=== PATIENT | female | born 1990 | race Caucasian/White ===

== ENCOUNTER 2017-01-03 07:01 | Emergency (ER) | payer OTHER ==
[2017-01-03 07:07] VITALS: RESP 12
[2017-01-03] MEDS ORDERED: ALBUTEROL NEB SOL 2.5MG/3ML 1 VIAL SOL NEB ONE (07:17)
[2017-01-03] MEDS ORDERED: ALBUTEROL NEB SOL 2.5MG/3ML 1 VIAL SOL ONE (07:24)
[2017-01-03 07:30] LABS: BASOPHILS % (AUTO) 1 % (0-3); EOSINOPHILS % (AUTO) 6 % (0-9); HEMATOCRIT 27 % (35-47); MEAN CORPUSCULAR HGB CONC 32.8 gm/dl (32.0-36.0); MONOCYTES % (AUTO) 9.9 % (0-12); NEUTROPHILS % (AUTO) 44.9 % (37-80)
[2017-01-03 07:35] VITALS: BP 116/70; TEMP 97.2
[2017-01-03 07:36] LABS: MEAN CORPUSCULAR VOLUME 75 fL (81-99)
[2017-01-03 07:39] VITALS: PULSE 88; O2SAT 99
[2017-01-03 07:46] LABS: HYPOCHROMASIA PRESENT
[2017-01-03 07:47] LABS: ANISOCYTOSIS SLIGHT AMT; OVALOCYTES PRESENT
== END 2017-01-03 08:19 | disposition home or self-care (01) ==
LOC: ED 07:01
DX: J20.9 Acute bronchitis, unspecified (principal)
CPT/HCPCS: 36415; 71010; 85025; 87430; 99283; J7603

== ENCOUNTER 2017-10-18 05:42 | Emergency (ER) | payer OTHER ==
[2017-10-18 05:50] VITALS: TEMP 97.1; O2SAT 100
[2017-10-18] MEDS ORDERED: ALBUTEROL/IPRATROPIUM 1 VIAL SOL ONE (05:52)
[2017-10-18] MEDS ORDERED: ALBUTEROL/IPRATROPIUM 1 VIAL SOL INH ONE (05:56)
[2017-10-18] MEDS ORDERED: PREDNISONE 20 MG TAB PO ONE (06:13)
[2017-10-18] MEDS ORDERED: AZITHROMYCIN 250 MG TAB PO ONE (06:14)
[2017-10-18] MEDS ORDERED: PREDNISONE 20 MG TAB ONE (06:21)
[2017-10-18] MEDS ORDERED: AZITHROMYCIN 250 MG TAB ONE (06:22)
[2017-10-18 06:39] VITALS: BP 112/64; PULSE 89; RESP 18
== END 2017-10-18 06:37 | disposition home or self-care (01) ==
LOC: ED 05:42
DX: J40 Bronchitis, not specified as acute or chronic (principal); Z57.31 Occupational exposure to environmental tobacco smoke
CPT/HCPCS: 99282; 99283; A9270-GY

== ENCOUNTER 2018-02-26 02:30 | Emergency (ER) | payer OTHER ==
[2018-02-26 02:52] VITALS: TEMP 97
[2018-02-26] MEDS ORDERED: LIDOCAINE HCL 2% (VISCOUS) 20 ML SOL MT ONE (02:52)
[2018-02-26] MEDS ORDERED: ALUMINUM/MAGNESIUM 30 ML SUS PO ONE (02:52)
[2018-02-26] MEDS ORDERED: ALUMINUM/MAGNESIUM 30 ML SUS ONE (02:54)
[2018-02-26] MEDS ORDERED: LIDOCAINE HCL 2% (VISCOUS) 20 ML SOL ONE (02:55)
[2018-02-26 04:04] LABS: BASOPHILS % (AUTO) 1 % (0-3); EOSINOPHILS % (AUTO) 3 % (0-9); HEMATOCRIT 28 % (35-47); HEMOGLOBIN 8.7 gm/dl (12.0-15.5); MEAN CORPUSCULAR HGB CONC 31.1 gm/dl (32.0-36.0); MONOCYTES % (AUTO) 8.8 % (0-12); NEUTROPHILS % (AUTO) 57.4 % (37-80)
[2018-02-26 04:09] LABS: MEAN CORPUSCULAR VOLUME 80 fL (81-99)
[2018-02-26 04:13] LABS: APPEARANCE,URINE Clear; BILIRUBIN,URINE NEGATIVE (NEGATIVE); COLOR,URINE Yellow; GLUCOSE, URINE (UA) NEGATIVE (NEGATIVE); KETONES,URINE NEGATIVE (NEGATIVE); LEUKOCYTE ESTERASE ,URINE 1+ (NEGATIVE); NITRATE,URINE NEGATIVE (NEGATIVE); OCCULT BLOOD,URINE NEGATIVE (NEG-TRACE); UROBILINOGEN,URINE 0.2 (0.2-1.0 EU)
[2018-02-26 04:18] LABS: ALBUMIN 3.5 gm/dl (3.4-5.0); BILIRUBIN,TOTAL 0.1 mg/dl (0.2-1.0); CALCIUM 8.4 mg/dl (8.5-10.1); CARBON DIOXIDE 25.4 mEq/L (21-32); CREATININE 0.71 mg/dl (0.60-1.00); POTASSIUM 3.8 mMol/L (3.5-5.1); TOTAL PROTEIN 7.2 gm/dl (6.4-8.2)
[2018-02-26 04:34] LABS: RBC,URINE NEGATIVE (0-3AV/HPF)
[2018-02-26 04:35] LABS: BACTERIA 1+ (< 1+); CRYSTALS NEGATIVE (0-3 AVE/HPF)
[2018-02-26 04:39] LABS: HYPOCHROMASIA SLIGHT AMT; OVALOCYTES PRESENT; POIKILOCYTOSIS SLIGHT AMT
[2018-02-26 05:15] VITALS: BP 118/78; PULSE 67; RESP 18; O2SAT 98
== END 2018-02-26 05:03 | disposition home or self-care (01) ==
LOC: ED 02:30
DX: N30.00 Acute cystitis without hematuria (principal); D50.9 Iron deficiency anemia, unspecified
CPT/HCPCS: 36415; 80053; 81001; 84703; 85025; 87088; 99283; A9270-GY

== ENCOUNTER 2018-05-26 23:04 | Emergency (ER) | payer OTHER ==
[2018-05-26 23:30] VITALS: RESP 18; TEMP 98.2; O2SAT 100
[2018-05-26] MEDS ORDERED: DIPHENHYDRAMINE 25 MG CAP PO ONE ×2 (23:31)
[2018-05-26] MEDS ORDERED: DIPHENHYDRAMINE 25 MG CAP ONE (23:32)
[2018-05-26 23:51] VITALS: BP 117/85; PULSE 72
== END 2018-05-26 23:54 | disposition home or self-care (01) ==
LOC: ED 23:04
DX: T78.1XXA Other adverse food reactions, not elsewhere classified, initial encounter (principal); R21 Rash and other nonspecific skin eruption
CPT/HCPCS: 99282; A9270-GY

== ENCOUNTER 2018-07-17 03:45 | Emergency (ER) | payer BC, OTHER ==
[2018-07-17 03:49] VITALS: RESP 18; TEMP 98
[2018-07-17] MEDS ORDERED: ONDANSETRON HCL 4 MG TAB PO ONE (04:05)
[2018-07-17] MEDS ORDERED: ONDANSETRON HCL 4 MG/2 ML SOL IV ONE (04:06)
[2018-07-17] MEDS ORDERED: SODIUM CHLORIDE 0.9% 1000ML 1,000 ML IV ONE (04:06)
[2018-07-17] MEDS ORDERED: ONDANSETRON HCL 4 MG/2 ML SOL ONE (04:19)
[2018-07-17 04:30] LABS: APPEARANCE,URINE Clear; BILIRUBIN,URINE NEGATIVE (NEGATIVE); COLOR,URINE Light yellow; GLUCOSE, URINE (UA) NEGATIVE (NEGATIVE); KETONES,URINE NEGATIVE (NEGATIVE); LEUKOCYTE ESTERASE ,URINE NEGATIVE (NEGATIVE); NITRATE,URINE NEGATIVE (NEGATIVE); OCCULT BLOOD,URINE TRACE LYSED (NEG-TRACE); UROBILINOGEN,URINE 0.2 (0.2-1.0 EU)
[2018-07-17 04:31] LABS: BASOPHILS % (AUTO) 1 % (0-3); EOSINOPHILS % (AUTO) 2 % (0-9); HEMATOCRIT 29 % (35-47); HEMOGLOBIN 8.6 gm/dl (12.0-15.5); LYMPHOCYTES % (AUTO) 25.8 % (10-50); MEAN CORPUSCULAR HEMOGLOBIN 24.1 pg (27.0-32.0); MEAN CORPUSCULAR HGB CONC 29.9 gm/dl (32.0-36.0); NEUTROPHILS % (AUTO) 65.2 % (37-80)
[2018-07-17 04:36] LABS: MEAN CORPUSCULAR VOLUME 81 fL (81-99)
[2018-07-17 04:40] LABS: AMPHETAMINES NEGATIVE (NEGATIVE); BACTERIA 1+ (< 1+); BARBITUATES NEGATIVE (NEGATIVE); BENZODIAZEPINES NEGATIVE (NEGATIVE); CANNABINOL(THC) NEGATIVE (NEGATIVE); COCAINE(COC) NEGATIVE (NEGATIVE); CRYSTALS NEGATIVE (0-3 AVE/HPF); METHADONE NEGATIVE (NEGATIVE); METHAMPHETAMINES NEGATIVE (NEGATIVE); OPIATES(OPI) NEGATIVE (NEGATIVE); OXYCODONE(OXY) NEGATIVE (NEGATIVE); PROPOXYPHENE(PPX) NEGATIVE (NEGATIVE); RBC,URINE 0-2 (0-3AV/HPF); TRICYCLIC ANTIDEPRESSANTS NEGATIVE (NEGATIVE)
[2018-07-17 04:44] LABS: NORMAL RBCS PRESENT
[2018-07-17 04:50] LABS: ALBUMIN 3.8 gm/dl (3.4-5.0); ALCOHOL 0.003 gm/dl (0.000-0.08); BILIRUBIN,TOTAL 0.2 mg/dl (0.2-1.0); CALCIUM 8.2 mg/dl (8.5-10.1); CARBON DIOXIDE 24.8 mEq/L (21-32); CREATININE 0.91 mg/dl (0.60-1.00); POTASSIUM 3.6 mMol/L (3.5-5.1); THYROID STIMULATING HORMONE 1.901 uIU/ml (0.358-3.740); TOTAL PROTEIN 7.5 gm/dl (6.4-8.2)
[2018-07-17 05:20] VITALS: BP 118/75; PULSE 66; O2SAT 98
== END 2018-07-17 05:50 | disposition home or self-care (01) ==
LOC: ED 03:45
DX: D64.89 Other specified anemias (principal); R53.1 Weakness; R42 Dizziness and giddiness; R11.2 Nausea with vomiting, unspecified
CPT/HCPCS: 36415; 80053; 80305; 80307; 81001; 84443; 84703; 85025; 96365; 96374; 99283; 99284; J2405

== ENCOUNTER 2018-09-22 07:11 | Emergency (ER) | payer OTHER ==
[2018-09-22 07:33] VITALS: TEMP 97
[2018-09-22] MEDS ORDERED: APAP/HYDROCODONE 1 EACH TABLET PO ONE (08:00)
[2018-09-22] MEDS ORDERED: APAP/HYDROCODONE 1 EACH TABLET ONE (08:02)
[2018-09-22 08:05] LABS: APPEARANCE,URINE Cloudy; BILIRUBIN,URINE NEGATIVE (NEGATIVE); COLOR,URINE Brown; GLUCOSE, URINE (UA) NEGATIVE (NEGATIVE); KETONES,URINE NEGATIVE (NEGATIVE); LEUKOCYTE ESTERASE ,URINE NEGATIVE (NEGATIVE); NITRATE,URINE NEGATIVE (NEGATIVE); OCCULT BLOOD,URINE 3+ (NEG-TRACE); UROBILINOGEN,URINE 0.2 (0.2-1.0 EU)
[2018-09-22 08:17] LABS: BACTERIA 2+ (< 1+); CRYSTALS NEGATIVE (0-3 AVE/HPF); EPITHELIAL CELLS 0-4 (SQUAMOUS); RBC,URINE TNTC (0-3AV/HPF)
[2018-09-22] MEDS ORDERED: SODIUM CHLORIDE 0.9% 1000ML 1,000 ML IV SCH (08:30)
[2018-09-22 08:43] VITALS: PULSE 78
[2018-09-22] MEDS ORDERED: SODIUM CHLORIDE 0.9% FLUSH 10 ML SOL IV PRN (08:43)
[2018-09-22 08:51] LABS: CALCIUM 8.3 mg/dl (8.5-10.1); CARBON DIOXIDE 27.5 mEq/L (21-32); CREATININE 0.72 mg/dl (0.60-1.00); POTASSIUM 4.3 mMol/L (3.5-5.1)
[2018-09-22] MEDS ORDERED: PREDNISONE 20 MG TAB PO ONE (10:08)
[2018-09-22] MEDS ORDERED: TAMSULOSIN HYDROCHLORIDE 0.4 MG CAP PO SCH (10:15)
[2018-09-22] MEDS ORDERED: PREDNISONE 20 MG TAB ONE (11:39)
[2018-09-22] MEDS ORDERED: TAMSULOSIN HYDROCHLORIDE 0.4 MG CAP ONE (12:03)
[2018-09-22 12:08] VITALS: BP 111/75; RESP 14; O2SAT 99
== END 2018-09-22 12:33 | disposition home or self-care (01) ==
LOC: ED 07:11
DX: N20.0 Calculus of kidney (principal); R10.9 Unspecified abdominal pain
CPT/HCPCS: 36415; 74176; 80048; 81001; 84703; 87088; 96365; 99283; 99285; A9270-GY

== ENCOUNTER 2018-10-10 11:06 | Emergency (ER) | payer OTHER ==
[2018-10-10] MEDS: ACETAMINOPHEN 500 MG 500 MG TAB PO ONE (11:22)
[2018-10-10 11:24] VITALS: BP 121/76; PULSE 96; RESP 16; TEMP 97.7; O2SAT 97
[2018-10-10] MEDS ORDERED: ACETAMINOPHEN 500 MG 500 MG TAB ONE (11:24)
== END 2018-10-10 12:10 | disposition home or self-care (01) ==
LOC: ED 11:06
DX: S93.402A Sprain of unspecified ligament of left ankle, initial encounter (principal); W18.40XA Slipping, tripping and stumbling without falling, unspecified, initial encounter
CPT/HCPCS: 73610; 99282; 99283